=== PATIENT | female | born 1980 | race Caucasian/White ===

== ENCOUNTER 2016-12-25 09:30 | Inpatient (IN) | payer BC ==
[2016-12-25] MEDS ORDERED: DEXTROSE 5%-LACTATED RINGERS 1,000 ML IV SCH (20:30)
[2016-12-25] MEDS ORDERED: AMPICILLIN 2 GM/100 ML BAG (PRE-DOCKED) IVPB ONE (20:45)
[2016-12-25 21:33] VITALS: BMI 29.2
--- NOTE | 2016-12-25 21:55 | HP ---
Past Medical History - Primary Care Physician PCP:: Madai Ramos - Admission Chief Complaint: 36yo P1 @ 39.1 wks with ctx since noon, no VB, no LOF, + FM History of Present Illness: 36yo P1 @ 39.1 wks with ctx since noon, no VB, no LOF, + FM 1. 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 Weeks Gestation by Dates: 39.1 ...EDC by Dates: 01/04/17 ...EDC by Sono: 12/29/16 - Past Surgical History Hx Myomectomy: No Hx Transabdominal Cerclage: No Additional Surgical History: 02/2001 Thymectomy. D&C for Missed Ab - Smoking History Smoking history: Never smoked Have you smoked in the past 12 months: No Aproximately how many cigarettes per day: 0 - Alcohol/Substance Use Hx Alcohol Use: No History of Substance Use: reports: None - Social History History of Recent Travel: No Home Medications - Allergies Allergies/Adverse Reactions: Allergies Allergy/AdvReac Type Severity Reaction Status Date / Time No Known Drug Allergies Allergy Verified 09/06/12 09:07 - Home Medications Home Medications: Ambulatory Orders RX: Vitamins (Sjr) - 1 tab PO DAILY 08/24/12 Family Disease History - Family Disease History Family Disease History: Heart Disease: Father (HTN), CA: Mother (Nasopharyngeal CA) Review of Systems - Review of Systems Constitutional: reports: No Symptoms Eyes: reports: No Symptoms HENT: reports: No Symptoms Neck: reports: No Symptoms Cardiovascular: reports: No Symptoms Respiratory: reports: No Symptoms Gastrointestinal: reports: No Symptoms Genitourinary: reports: No Symptoms, Other (Contructions) Breasts: reports: No Symptoms Reported Musculoskeletal: reports: No Symptoms Integumentary: reports: No Symptoms Neurological: reports: No Symptoms Endocrine: reports: No Symptoms Hematology/Lymphatic: reports: No Symptoms Psychiatric: reports: No Symptoms Physical Exam - Maternity Vital Signs: Vital Signs Temperature 97.7 F 12/25/16 21:25 Pulse Rate 91 H 12/25/16 21:25 Respiratory Rate 19 12/25/16 21:25 Blood Pressure 114/71 12/25/16 21:25 O2 Sat by Pulse Oximetry (%) Constitutional: Yes: Well Nourished HENT: Yes: WNL Neck: Yes: WNL Cardiovascular: Yes: WNL Lungs: Clear to auscultation Breast(s): Yes: WNL - Abdominal Exam/OB Fundal Height: 39 Number of Fetuses: Single Presentation: Vertex Contractions: Yes Regularity: Regular Intensity: Mild/Mod Monitor Mode: External Heart Rate (range): 140 Heart Rate Location: [facility] Category: I Accelerations: Uniform Decelerations: None - Vaginal Exam/OB Vaginal Bleediing: No Speculum Exam: No Dilatation (cm): 6 Effacement (%): 75% Amniotic Membrane Status: Intact Presentation: Vertex/Position Station: -3 (EFW 7.5lb) - Physical Exam Musculoskeletal: Yes: WNL Extremities: Yes: WNL Edema: No Integumentary: Yes: WNL ...Motor Strength: WNL Psychiatric: Yes: WNL Assessment/Plan 36 yo P1 @ 39.1 wks in labor Admit to L&D MF status reasuring Category 1 FHR Send labs, IVF, Start Ampicillin for GBS + Epidural for pain managment AROM for augmentation @ 10:45pm with 2nd dose of abx
[2016-12-25] MEDS ORDERED: TUBERCULIN PPD 5 TU/0.1ML SYRINGE (IN PATIENT USE ONLY) ID ONE (22:00)
[2016-12-25 22:09] LABS: BASOPHIL 0.3 % (0-2.0); EOSINOPHIL 0.4 % (0-4.5); MCH 26.8 pg (25.7-33.7); MCHC 32.6 g/dl (32.0-36.0); MEAN CELL VOLUME 82.1 fl (80-96); MEAN PLT VOLUME 9.8 fl (7.5-11.1); NEUTROPHILS 80.5 % (42.8-82.8); PLATELET COUNT 196 K/MM3 (134-434); WHITE BLOOD COUNT 11.3 K/mm3 (4.0-10.0)
[2016-12-25 22:17] LABS: INR 0.91 (0.82-1.09)
[2016-12-25 22:20] LABS: ACTIVATED PTT 24.6 SECONDS (26.9-34.4)
[2016-12-25] MEDS ORDERED: FENTANYL/BUPIVACAINE/NS/PF - PCEA - 50 ML DISP.SYRIN EP SCH (22:20)
[2016-12-25 22:27] LABS: CALCIUM 8.7 mg/dL (8.5-10.1); COCKROFT - GAULT 104.176; CREATININE 0.9 mg/dL (0.55-1.02)
[2016-12-25] MEDS: AMPICILLIN (PRE-DOCKED) 1 GM/100 ML BAG IVPB SCH (23:15)
[2016-12-25] MEDS ORDERED: OXYTOCIN 15 UNITS/ LR 250 ML 250 ML IVPB SCH (23:45)
--- NOTE | 2016-12-25 23:58 | PN ---
Progress Note, Labor Vaginal Exam #1 Labor Exam Date: 12/25/16 Labor Exam Time: 23:45 Heart Rate (range): 140's Mod varriability, +accels, no decels Dilatation: 7cm Effacement (%): 75% Amniotic Membrane Status: Ruptured (SROM) Presentation: Vertex/Position Station: -3 Remarks: 36 yo P1 @ 39.1 wks in active labor comfortable with epidural SROM, clear, MF status reasuring Start Pitocin Second dose Ampicillin going in
[2016-12-26] MEDS ORDERED: AMPICILLIN (PRE-DOCKED) 1 GM/100 ML BAG IVPB SCH (00:45)
[2016-12-26] MEDS: OXYTOCIN 15 UNITS/ LR 250 ML 250 ML IVPB SCH ×2 (01:00)
[2016-12-26 01:03] LABS: HIV 1 & 2 AB NEGATIVE; HIV 1 AGp24 NEGATIVE
[2016-12-26] MEDS ORDERED: ELECTROLYTE-148 SOLN 1,000 ML IV SCH (02:30)
[2016-12-26] MEDS ORDERED: METHYLERGONOVINE MALEATE 0.2 MG/1 ML AMP IM PRN (03:24)
[2016-12-26] MEDS ORDERED: BENZOCAINE 20% 57 GM BOTTLE TP PRN (03:24)
[2016-12-26] MEDS ORDERED: WITCH HAZEL 50% (TUCKS) 40 PAD/JAR PAD TP PRN (03:24)
[2016-12-26] MEDS ORDERED: BISACODYL 10 MG SUPP.RECT RC PRN (03:24)
[2016-12-26] MEDS ORDERED: BENZOCAINE 28 GM HEMORRHOIDAL OINTMENT TP PRN (03:24)
[2016-12-26] MEDS ORDERED: D5W-LR W/ 20 UNITS OXYTOCIN 1,000 ML IV SCH (03:30)
--- NOTE | 2016-12-26 03:31 | PN ---
Delivery - Delivery Vaginal Delivery: No Problems Type of Anesthesia: Epidural Episiotomy/Laceration: None EBL (cc): 300 Delivery, Single - Stages of Labor Date 1st Stage Initiatied: 12/25/16 Time 1st Stage Initiated: 19:00 Date 2nd Stage Initiated: 12/26/16 Time 2nd Stage Initiated: 02:55 Date of Delivery: 12/26/16 Time of Delivery: 03:02 Date Placenta Delivered: 12/26/16 Time Placenta Delivered: 03:17 Placenta: Yes: Spontaneous - Condition of Infant Rhinologist/Events Assistant Present: No Gender: Male Position: OA - 1 Minute Total Score: 9 5 Minutes Total Score: 9 - [place] Feeding Plan Initial Plan: Elected not to breastfeed exclusively throughout hospitalization Benefits of Exclusively reinforced: Yes Remarks - Remarks Remarks: Uncomplicated head and shoulder delivery
[2016-12-26] MEDS ORDERED: PRENATAL VITAMINS W/ FOLIC ACID TABLET (FP) PO SCH (10:00)
[2016-12-26] MEDS ORDERED: DIPHTH,PERTUSS(ACELL),TET 0.5 ML DISP.SYRIN IM ONE (10:00)
[2016-12-26] MEDS: PRENATAL VITAMINS W/ FOLIC ACID TABLET (FP) PO SCH (10:04)
[2016-12-26] MEDS: FERROUS SO4 325 MG TABLET (FP) PO SCH ×2 (10:04→21:53)
[2016-12-26] MEDS: ACETAMINOPHEN 325 MG TABLET (FP) PO PRN ×3 (10:08→21:53)
[2016-12-26] MEDS: IBUPROFEN 600 MG TABLET (FP) PO PRN ×3 (10:09→21:54)
[2016-12-26] MEDS: SENNOSIDES/DOCUSATE COMBO (SENNA PLUS) TABLET (UD) PO PRN (22:01)
[2016-12-27] MEDS: ACETAMINOPHEN 325 MG TABLET (FP) PO PRN ×5 (02:20→23:11)
[2016-12-27] MEDS: IBUPROFEN 600 MG TABLET (FP) PO PRN ×5 (02:21→23:11)
[2016-12-27 08:44] LABS: BASOPHIL 0.4 % (0-2.0); MCH 27.4 pg (25.7-33.7); MCHC 33.3 g/dl (32.0-36.0); MEAN CELL VOLUME 82.4 fl (80-96); MEAN PLT VOLUME 9.4 fl (7.5-11.1); NEUTROPHILS 76.1 % (42.8-82.8); PLATELET COUNT 158 K/MM3 (134-434); RDW 13.6 % (11.6-15.6); WHITE BLOOD COUNT 12.3 K/mm3 (4.0-10.0)
--- NOTE | 2016-12-27 08:48 | PN ---
Post Progress Note - Subjective Subjective: No complaints Post Day: 1 Type of Delivery: Vital Signs: Vital Signs Temperature 97.6 F 12/27/16 02:00 Pulse Rate 69 12/27/16 02:00 Respiratory Rate 18 12/27/16 02:00 Blood Pressure 95/56 12/27/16 02:00 O2 Sat by Pulse Oximetry (%) 100 12/26/16 04:30 Breast Exam: Yes: Soft Uterus: Yes: Fundus Firm, Fundus below umbilicus, Non-tender Abdomen/GI: Yes: Abdomen soft, Passing flatus, Tolerating PO Lochia: Yes: Rubra Lochia, amount: Small Extremities: Yes: Calves non-tender, Edema Perineum: Yes: Intact Activity: Ambulating - Labs Labs: CBC WBC 11.3 K/mm3 (4.0-10.0) H 12/25/16 21:00 RBC 4.30 M/mm3 (3.60-5.2) D 12/25/16 21:00 Hgb 11.5 GM/dL (10.7-15.3) D 12/25/16 21:00 Hct 35.3 % (32.4-45.2) D 12/25/16 21:00 MCV 82.1 fl (80-96) 12/25/16 21:00 MCHC 32.6 g/dl (32.0-36.0) 12/25/16 21:00 RDW 14.0 % (11.6-15.6) 12/25/16 21:00 Plt Count 196 K/MM3 (134-434) 12/25/16 21:00 MPV 9.8 fl (7.5-11.1) D 12/25/16 21:00 Neutrophils % 80.5 % (42.8-82.8) 12/25/16 21:00 Lymphocytes % 13.4 % (8-40) 12/25/16 21:00 Monocytes % 5.4 % (3.8-10.2) 12/25/16 21:00 Eosinophils % 0.4 % (0-4.5) 12/25/16 21:00 Basophils % 0.3 % (0-2.0) 12/25/16 21:00 Assessment/Plan 36yo P2 s/p , doing well stable, afebrile. care instructions reviewed. Continue routine care. Ambulation encouraged Discharge instruction reviewed.
[2016-12-27] MEDS: FERROUS SO4 325 MG TABLET (FP) PO SCH ×2 (10:04→21:38)
[2016-12-27] MEDS: PRENATAL VITAMINS W/ FOLIC ACID TABLET (FP) PO SCH (10:04)
[2016-12-27] MEDS: SENNOSIDES/DOCUSATE COMBO (SENNA PLUS) TABLET (UD) PO PRN (21:38)
[2016-12-28] MEDS: ACETAMINOPHEN 325 MG TABLET (FP) PO PRN ×2 (04:58→11:10)
[2016-12-28] MEDS: IBUPROFEN 600 MG TABLET (FP) PO PRN ×2 (05:01→11:09)
[2016-12-28 08:12] VITALS: BP 107/68; PULSE 79; TEMP 98.2
--- NOTE | 2016-12-28 08:45 | PN ---
Post Progress Note - Subjective Subjective: Patient without acute complaints. Reports tolerating oral intake without nausea or vomiting. Ambulating without dizziness. Denies fevers or chills. Pain well controlled with oral pain medication. without difficulty. Passing flatus. Post Day: 2 Type of Delivery: Vital Signs: Vital Signs Temperature 98.2 F 12/28/16 07:20 Pulse Rate 79 12/28/16 07:20 Respiratory Rate 20 12/28/16 07:20 Blood Pressure 107/68 12/28/16 07:20 O2 Sat by Pulse Oximetry (%) 100 12/26/16 04:30 Breast Exam: Yes: Engorged Uterus: Yes: Fundus Firm, Fundus below umbilicus Abdomen/GI: Yes: Abdomen soft, Passing flatus, Tolerating PO. No: Tender Lochia: Yes: Serosa Lochia, amount: Small Extremities: Yes: Calves non-tender. No: Calf tenderness, Edema Activity: Ambulating - Labs Labs: CBC WBC 12.3 K/mm3 (4.0-10.0) H 12/27/16 07:30 RBC 4.25 M/mm3 (3.60-5.2) 12/27/16 07:30 Hgb 11.6 GM/dL (10.7-15.3) 12/27/16 07:30 Hct 35.0 % (32.4-45.2) 12/27/16 07:30 MCV 82.4 fl (80-96) 12/27/16 07:30 MCHC 33.3 g/dl (32.0-36.0) 12/27/16 07:30 RDW 13.6 % (11.6-15.6) 12/27/16 07:30 Plt Count 158 K/MM3 (134-434) 12/27/16 07:30 MPV 9.4 fl (7.5-11.1) 12/27/16 07:30 Neutrophils % 76.1 % (42.8-82.8) 12/27/16 07:30 Lymphocytes % 16.5 % (8-40) D 12/27/16 07:30 Monocytes % 5.0 % (3.8-10.2) 12/27/16 07:30 Eosinophils % 2.0 % (0-4.5) D 12/27/16 07:30 Basophils % 0.4 % (0-2.0) 12/27/16 07:30 Assessment/Plan 36 yo PPD # 2 s/p , afebrile, vital signs stable, doing well 1. Patient stable for discharge home today. 2. Patient encouraged to contact MD for: - Severe pain not controlled by oral pain medication - Fevers or chills - Nausea or vomiting, intolerance of oral intake 3. Patient to follow up in office in 4-6 weeks for visit
[2016-12-28] MEDS: PRENATAL VITAMINS W/ FOLIC ACID TABLET (FP) PO SCH (09:15)
[2016-12-28] MEDS: FERROUS SO4 325 MG TABLET (FP) PO SCH (09:15)
--- NOTE | 2016-12-28 09:30 | DS ---
Physical Exam-[facility] Vital Signs: Vital Signs Temperature 98.2 F 12/28/16 07:20 Pulse Rate 79 12/28/16 07:20 Respiratory Rate 20 12/28/16 07:20 Blood Pressure 107/68 12/28/16 07:20 O2 Sat by Pulse Oximetry (%) 100 12/26/16 04:30 Labs: CBC, BMP 12/27/16 07:30 12/25/16 21:00 Delivery - Delivery Vaginal Delivery: No Problems Type of Anesthesia: Epidural Episiotomy/Laceration: None EBL (cc): 300 Delivery, Single - Stages of Labor Date 1st Stage Initiatied: 12/25/16 Time 1st Stage Initiated: 19:00 Date 2nd Stage Initiated: 12/26/16 Time 2nd Stage Initiated: 02:55 Date of Delivery: 12/26/16 Time of Delivery: 03:02 Time Placenta Delivered: 03:17 Placenta: Yes: Spontaneous - Condition of Elastic Attacher Overlock/Underwriter Solicitation Director Present: No Infant Gender: Male Weight: 6 lb 9 oz Position: OA Total Hours ROM (Hrs/Mins): 3 hours 32 minutes - 1 Minute Total Score: 9 5 Minutes Total Score: 9 - Feeding Plan Initial Plan: Elected not to breastfeed exclusively throughout hospitalization Benefits of Exclusively reinforced: Yes Discharge Summary Reason For Visit: LABOR Current Active Problems Normal vaginal delivery (Acute) Vaginal delivery (Acute 09/28/13) Procedures: Principal: vaginal delivery Hospital Course: s/p PPD #1 noted stable CBC She remained afebrile, vital signs stable, for discharge home PPD #2 Condition: Good - Instructions Diet, Activity, Other Instructions: Physical activity Resume your normal everyday activity as tolerated no heavy lifting or exercise until seen by your surgeon. You may walk unlimited javon of and climb stairs. You may resume driving the car when you feel safe and comfortable behind the wheel. No sexual activity as instructed. Wound care If you have a bandage, leave it on, and keep dry for 48-72 hours. After that time discard the outer bandage. If they are tapes on the skin under the out of bandage leave them in place. They will peel off in the next 7 to 10 days. Do Not Peel them off. You may shower the day after surgery. If there are tapes present on the skin, you may shower over them. Diet There are no dietary restrictions. Eat healthy, high-fiber foods. Drink 6 to 8 glasses of liquid each day. This will assist in keeping your bowels are regular. Pain management You may take Tylenol or acetaminophen or Ibuprofen (for example, Motrin, Advil etc.) from my pain prescription medication is ordered should be taken as prescribed for moderate to severe pain. Call MD for any of the following: Severe pain not relieved by medication Fever of 101 or higher Excessive bleeding or drainage on dressing Inability to urinate Referrals: Mian Ortiz MD [Staff Physician] - (Call M.D. and make appt. to be seen in 4 weeks.) Disposition: HOME - Home Medications Comprehensive Discharge Medication List: Ambulatory Orders RX: Vitamins (Sjr) - 1 tab PO DAILY 08/24/12
== END 2016-12-28 12:15 | disposition home or self-care (01) | DRG 775 ==
LOC: JLDR 20:53 → J3W 12-26 04:40
PROVIDERS: ADMIT Obstetrics & Gynecology; ATTEND Obstetrics & Gynecology
PROC: 10E0XZZ Delivery of Products of Conception, External Approach (ICD-10-PCS; principal; 2016-12-26)
DX: O26.893 Other specified pregnancy related conditions, third trimester (principal); Z22.330 Carrier of Group B streptococcus; O09.523 Supervision of elderly multigravida, third trimester; Z3A.39 39 weeks gestation of pregnancy; Z37.0 Single live birth
CPT/HCPCS: 36415; 59409; 80048; 85025; 85610; 85730; 86593; 86850; 86900; 86901; 87389; 90715